=== PATIENT | female | born 2000 | race Caucasian/White ===

== ENCOUNTER 2019-02-27 00:46 | Emergency (ER) | payer BC ==
[2019-02-27] MEDS ORDERED: LIDOCAINE 1%/EPINEPHRINE INJ 20 ML VIAL INJ ONE (03:34)
[2019-02-27] MEDS ORDERED: AMOXICILLIN TR/POT CLAVULANATE 500-125 MG TAB PO ONE (03:36)
[2019-02-27] MEDS ORDERED: AMOXICILLIN TRIHYDRATE 500 MG CAPSULE PO ONE (03:36)
[2019-02-27] MEDS ORDERED: DIPH/PERTUSS(ACELL)/TETANUS VAC/PF 0.5 ML SYR (>=10YO) IM ONE (03:36)
--- NOTE | 2019-02-27 03:37 | ER Document Report ---
ED Animal Bite - General Chief Complaint: Animal Bite Stated Complaint: DOG BITE-LIP LACERATION Time Seen by Provider: 02/27/19 03:18 Primary Care Provider: SOFIA CRUZ MD [Primary Care Provider] - Follow up as needed SHERRIE KLEIN MD [ACTIVE STAFF] - Follow up in 1 week Notes: Patient is a 18-year-old female that comes to the emergency department for chief complaint of dog bite to her face. She states this happened prior to arrival while she was at another person's house, the dog was a Josiah Rosales. She sustained a gash laceration to the mid upper lip. She denies any other injuries. She is not up-to-date on her tetanus. Dog was reported to be vaccinated by owners. Patient denies or any daily medications, denies any medical history. - Related Data Allergies/Adverse Reactions: No Known Allergies Allergy (Verified 02/27/19 01:30) Past Medical History - General Information source: Patient, Relative - Social History Smoking Status: Former Smoker Chew tobacco use (# tins/day): No Frequency of alcohol use: Rare Lives with: Family Family History: Reviewed & Not Pertinent Patient has suicidal ideation: No Patient has homicidal ideation: No - Immunizations Immunizations up to date: No Hx Diphtheria, Pertussis, Tetanus Vaccination: Yes Review of Systems - Review of Systems Constitutional: No symptoms reported EENT: See HPI Cardiovascular: No symptoms reported Respiratory: No symptoms reported Gastrointestinal: No symptoms reported Genitourinary: No symptoms reported Female Genitourinary: No symptoms reported Musculoskeletal: No symptoms reported Skin: See HPI Hematologic/Lymphatic: No symptoms reported Neurological/Psychological: No symptoms reported Physical Exam - Vital signs Vitals: Pulse Resp BP Pulse Ox 88 16 149/69 H 99 02/27/19 01:32 02/27/19 01:32 02/27/19 01:32 02/27/19 01:32 - Notes Notes: GENERAL: Alert, interacts well. No acute distress. HEAD: Normocephalic, atraumatic. EYES: Pupils equal, round, and reactive to light. Extraocular movements intact. ENT: Oral mucosa moist, tongue midline. There is a small flap laceration in the mid upper lip with bleeding. No other trauma noted. Oropharynx unremarkable. Airway patent. Nares patent, no nasal septal hematoma, TM's intact. NECK: Full range of motion. Supple. Trachea midline. LUNGS: Clear to auscultation bilaterally, no wheezes, rales, or rhonchi. No respiratory distress. HEART: Regular rate and rhythm. No murmur ABDOMEN: Soft, non-tender. Non-distended. EXTREMITIES: Moves all 4 extremities spontaneously. No edema, normal radial and dorsalis pedis pulses bilaterally. No cyanosis. BACK: no cervical, thoracic, lumbar midline tenderness. No saddle anesthesia, normal distal neurovascular exam. Moves all extremities in full range of motion. NEUROLOGICAL: Alert and oriented x3. Normal speech. Cranial nerves II through XII grossly intact. PSYCH: Normal affect, normal mood. SKIN: Warm, dry, normal turgor. No rashes or lesions noted. See ENT above Course - Re-evaluation Re-evalutation: I did discuss how we do not have plastics available and I offered to call them if patient desired, patient declined, requests repair. Repair was done as best I could, good results were noted, placed on Augmentin, referred to plastics on follow-up, discussed expectations, return precautions. I also offered rabies vaccine but this was declined. Patient and significant other state appreciation and agreement. - Vital Signs Vital signs: Temp Pulse Resp BP Pulse Ox 98.3 F 89 18 118/77 99 02/27/19 04:40 02/27/19 04:40 02/27/19 04:40 02/27/19 04:40 02/27/19 04:40 Procedures - Laceration/Wound Repair Mid upper lip Wound length (cm): 1 Wound's Depth, Shape: Flap Laceration pre-procedure: Sterile PPE donned, Sterile drapes applied, Shur-Clens applied Anesthetic type: 1% Lidocaine w/epi Volume Anesthetic (mLs): 2 Wound explored: Clean, No foreign body removed Irrigated w/ Saline (mLs): 30 Wound Repaired With: Sutures Suture Size/Type: 6:0, Ethilon Number of Sutures: 5 Layer Closure?: No Post-procedure NV exam normal: Yes Complications: No Discharge - Discharge Clinical Impression: Dog bite Qualifiers: Encounter type: initial encounter Qualified Code(s): W54.0XXA - Bitten by dog, initial encounter Lip laceration Qualifiers: Encounter type: initial encounter Qualified Code(s): S01.511A - Laceration without foreign body of lip, initial encounter Condition: Stable Disposition: HOME, SELF-CARE Instructions: Tetanus Immunization Given ([facility]) Additional Instructions: The area has been sutured because of the location. Sutures need to be removed in 5 to 7 days. Keep clean, clean with soap and water, dab dry, you can place topical antibiotic over the area. Take the Augmentin as prescribed, I recommend taking an [id number] probiotic to avoid diarrhea while taking this. Follow-up with the plastic surgeon referral for additional management. Return for any concerning symptoms including developing or spreading redness, discolored drainage, developing pain, fever, or any other concerning symptoms. Prescriptions: Amox Tr/Potassium Clavulanate [Augmentin 875-125 Tablet] 1 tab PO BID 7 Days #14 tablet Forms: Return to Work Referrals: SOFIA CRUZ MD [Primary Care Provider] - Follow up as needed SHERRIE KLEIN MD [ACTIVE STAFF] - Follow up in 1 week
[2019-02-27 04:57] VITALS: BP 118/77
== END 2019-02-27 04:54 | disposition home or self-care (01) ==
LOC: ER 00:46
PROC: 0CQ0XZZ Repair Upper Lip, External Approach (ICD-10-PCS; principal; 2019-02-27)
DX: S01.511A Laceration without foreign body of lip, initial encounter (principal); W54.0XXA Bitten by dog, initial encounter; Z87.891 Personal history of nicotine dependence
CPT/HCPCS: 99283; 90471; 90715; 12011; J3490